=== PATIENT | female | born 1980 | race Caucasian/White ===

== ENCOUNTER 2018-08-16 10:39 | Observation (INO) | payer OTHER ==
--- NOTE | 2018-08-15 11:09 | PDGENHP ---
History and Physical History and Physical: Assessment and Plan: 1. Endometriosis Maribell's symptoms are highly concerning for persistent endometriosis. We reviewed all conservative and surgical options. Unfortunately she has failed medical management. As a result, she is requesting laparoscopy with robotic excision of endometriosis. I will call in some Valium to use vaginally both when she has worsening pain symptoms as well as before physical therapy. She has operative photos at home and will email me copies. 2. Dysmenorrhea 3. Dyspareunia, female Subjective: Patient ID: Maribell Page is a 38 y.o. female who presents to [facility] for endometriosis. HPI Maribell Page presents for a preoperative visit. She is scheduled for a robotic excision of endometriosis. She is not planning on having any children. She is given me permission to remove her uterus and/or ovaries as indicated. The risks, benefits, and alternatives were presented and informed consent was obtained. 40 minutes of this 40 minute appointment was spent counceling, reviewing the procedure in detail, and discussing the preoperative and postoperative instructions. Below is a copy of our prior visit note. Lissy is a 38-year-old 0 woman who lives in [place]. 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 She recently moved from [facility]. In her early 30s she began developing irregular menses which then became prolonged. She also developed dysmenorrhea. She was tried on multiple control pills without any success. She also was tried on Lupron empirically for 3 months which did not help as well as letrozole. Eventually in February 2016 she underwent a diagnostic laparoscopy and was found to have endometriosis. He only performed a biopsy. Her pain persisted despite medical management. She then was referred to a Dr. Campos in [place] who performed laparoscopy with excision of endometriosis in the anterior and posterior cul-de-sac as well as bilateral ovarian sidewalls. She also removed a right endometrioma and placed a Mirena IUD. Unfortunately her pain slightly worsened for the first 6 months. Today she feels as though she has not received any benefit. She has a low level fairly constant left lower quadrant pain which worsens cyclically every 2 weeks. The pain radiates down her left leg. She has gone to pelvic floor physical therapy which did not help in fact made things worse. She currently is on Neurontin 900 mg at night and baclofen 10 mg twice per day. She has both dyspareunia and dyschezia which feels more like a generalized pain and persists afterwards. Her Mirena is still in place. 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 Asthma 1990 managed but brought on by severe colds Depression Dietary counseling and surveillance 12/23/2014 "for weight management" Endometriosis HPV in female Migraines Neuromuscular disorder (HC code) 2016 endometriosis causing nerve & muscle issues Polyp of nasal cavity 03/23/2018-2017 surgery completed Urinary tract infection Urticaria 03/23/2018 PastSurgicalHistory Past Surgical History: Procedure Laterality Date CHOLECYSTECTOMY INTRAUTERINE DEVICE INSERTION LAPAROSCOPY 2015, 2017 LEEP LIVER SURGERY 2014 liver hemangioma PREVIOUS SURGERIES 2004, 2014, 2015, 2016, 2017 sinus '05&'18, hemangioma - liver, lapro for endo '16&'17 CURRENT MEDICATIONS: Current Outpatient Medications Medication Sig albuterol HFA (PROAIR HFA) 90 mcg/actuation inhaler Inhale 2 puffs into the lungs every 6 hours as needed for Acute Asthma Attack. baclofen (LIORESAL) 10 mg tablet Take 1 tablet by mouth 2 times daily. buPROPion (WELLBUTRIN XL) 300 mg 24 hr tablet cetirizine (ZYRTEC) 10 mg tablet desvenlafaxine 100 mg TR24 EPINEPHrine (AUVI-Q) 0.3 mg/0.3 mL injection Inject 0.3 mLs into the muscle. gabapentin (NEURONTIN) 300 mg capsule Take 1 capsule by mouth 3 times daily. GENERIC DME for dryness. Falguni Geranium/Sesame Oil 3 sprays to each nostril twice daily. ipratropium (ATROVENT) 0.03 % nasal spray 2 sprays by Nasal route 2 times daily for Chronic Inflammation of the Nose Not due to Allergies, Non-Seasonal Allergic Runny Nose. levalbuterol (XOPENEX HFA) 45 mcg/actuation inhaler Inhale 1-2 puffs into the lungs every 4 hours as needed for Wheezing for Asthma Attack. levonorgestrel (MIRENA) 20 mcg/24 hr (5 years) IUD 52 mg by Intrauterine route continuous device. pseudoephedrine (SUDAFED) 30 mg tablet Take 2 tablets by mouth every 6 hours. tiZANidine (ZANAFLEX) 4 mg tablet traZODone (DESYREL) 50 mg tablet Take 1 tablet by mouth every 24 hours. valACYclovir (VALTREX) 1 g tablet No current facility-administered medications for this visit. ALLERGIES: Adhesive and Levaquin [levofloxacin] I have reviewed, verified and agree with the past medical, surgical, , family, social and ROS history as documented by the RN today. Objective: Vital Signs: Visit Vitals BP 108/72 Pulse 95 Temp 36.3 C (97.4 F) (Temporal) Resp 16 Ht 1.575 m (5' 2") Wt 71.6 kg (157 lb 12.8 oz) SpO2 99% BMI 28.86 kg/m Physical Exam Gen: This is an alert, well developed woman in no distress. Neuro: She moves all extremities. Psych: She is appropriate, oriented, with normal affect. Neck: No thyroid enlargement, adenopathy, or tenderness. Lungs: Clear to ascultation, no wheezes or rales. Heart: Regular rate and rhythm without obvious murmurs. Abdomen: Soft, non-tender, without guarding, rebound, or masses. Extremities: No edema or cyanosis. Pelvic: Normal external genitalia. Non-gaping introitus, vagina without discharge, adequately estrogenized, no significant prolapse. Cervix without lesions or discharge. Uterus normal size. Adnexa non-tender without enlargement. She is quite tender surrounding the cervix both anteriorly and even more so posteriorly. She has thickening and possible nodularity between the uterosacral ligaments on the posterior cervix. The posterior cul-de-sac is quite tender. This re-creates her pain. DATA: I have reviewed the pertinent medical records. PELVIC ULTRASOUND Transvaginal Pelvic Ultrasound Indication: Pelvic pain, history of endometriosis. Findings: The uterus is mid position and measures 5.7 x 3.8 x 4.3 cm. A Mirena IUD is seen at the fundus with the arms in a horizontal position. No uterine abnormalities are seen. The right ovary measures 2.7 x 1.5 cm and contains 2 dominant follicles. No endometriomas are seen. The left ovary measures 2.7 x 1.5 cm. There is no evidence of adhesive disease of either adnexa nor the uterus. Impression: Normal pelvic ultrasound. Appropriately positioned IUD. TIME/COMMUNICATION: I personally spent a total of 45 minutes. Of that 30 minutes was counseling/ coordination of patient's care. See my note above for details. Heriberto Duron MD Board Certified Female Pelvic Medicine and Reconstructive Surgery Director of Minimally Invasive Gynecologic Surgery, [facility] Surgeon in Minimally Invasive Gynecologic Surgery [facility] Surgeon in Robotic Surgery
[2018-08-16] MEDS ORDERED: ACETAMINOPHEN 500 MG TAB PO ONE (10:57)
[2018-08-16] MEDS ORDERED: ceFAZolin 2 GM/DEXTROSE 100 ML IV ONE (10:57)
[2018-08-16] MEDS ORDERED: GABAPENTIN 300 MG CAP PO ONE (10:57)
[2018-08-16] MEDS ORDERED: PHENAZOPYRIDINE HCL 200 MG TAB PO ONE ×2 (10:57→13:21)
[2018-08-16] MEDS ORDERED: LIDOCAINE 1% 2 ML INJ ID PRN (10:58)
[2018-08-16] MEDS ORDERED: LR 1,000 ML IV ONE (10:58)
--- NOTE | 2018-08-16 11:00 | PDHPUP ---
History & Physical Update H&P update statement: This history and physical update is based on an assessment of the patient which was completed after admission or registration (within 24 hours), but prior to the surgery/procedure. H&P update: no change in patient's condition since H&P completed
[2018-08-16] MEDS ORDERED: BUPIVACAINE/EPI 0.5% 30 ML SDV ONE ×2 (11:21→13:10)
[2018-08-16] MEDS ORDERED: SCOPOLAMINE HYDROBROMIDE 1 MG/3 DAYS PATCH TD ONE ×2 (11:22→11:26)
[2018-08-16] MEDS ORDERED: MIDAZOLAM 2 MG/2 ML VIAL IVP ONE (11:22)
--- NOTE | 2018-08-16 11:23 | PDANEPAE ---
ANE Past Medical History - Cardiovascular History Hx Hypertension: No Hx Arrhythmias: No Hx Chest Pain: No Hx Coronary Artery / Peripheral Vascular Disease: No Hx CHF / Valvular Disease: No Hx Palpitations: No - Pulmonary History Hx COPD: No Hx Asthma/Reactive Airway Disease: Yes Hx Recent Upper Respiratory Infection: No Hx Oxygen in Use at Home: No Hx Sleep Apnea: No Sleep Apnea Screening Result - Last Documented: Negative Pulmonary History Comment: ASTHMA - ALLERGY INDUCED AND CONTROLLED - Neurologic History Hx Cerebrovascular Accident: No Hx Seizures: No Hx Dementia: No Neurologic History Comment: MIGRAINES1-2 PER MONTH - Endocrine History Hx Diabetes: No - Renal History Hx Renal Disorders: No - Liver History Hx Hepatic Disorders: No Hepatic History Comment: HEMANGIOMA - Neurological & Psychiatric Hx Hx Neurological and Psychiatric Disorders: No - Cancer History Hx Cancer: No - Congenital Disorder History Hx Congenital Disorders: No - GI History Hx Gastrointestinal Disorders: No Gastrointestinal History Comment: IBS/CONSTIPATION - Other Health History Other Health History: NEG - Chronic Pain History Chronic Pain: Yes (ENDOMETRIOSIS - ABD, LOW BACK & LEGS) - Surgical History Prior Surgeries: LAPAROSCOPIES X2 ENDOMETRIOSIS. CHOLECYSTECTOMY. LIVER REMOVE HEMANGIOMA. ENDOSCOPIC SINUS SURG X2 ANE Review of Systems Review of Systems: - Exercise capacity METS (RN): 4 METS ANE Patient History - Allergies Allergies/Adverse Reactions: adhesive tape Allergy (Verified 08/16/18 11:19) BLISTERS levofloxacin [From Levaquin] Allergy (Verified 08/16/18 11:19) VERY STIFF MUSCLES & SPASMS - Home Medications Home medications: home medication list seen and reviewed Home Medications: Baclofen 07/20/18 [Last Taken Unknown] Bupropion HCl 07/20/18 [Last Taken Unknown] Desvenlafaxine 07/20/18 [Last Taken Unknown] Gabapentin 07/20/18 [Last Taken Unknown] Ibuprofen 07/20/18 [Last Taken Unknown] Delano-3 07/20/18 [Last Taken Unknown] Proair Hfa 07/20/18 [Last Taken Unknown] Trazodone HCl 07/20/18 [Last Taken Unknown] Xhance 07/20/18 [Last Taken Unknown] - NPO status NPO Status: no food or drink >8 hours NPO Since - Liquids (Date): 08/15/18 NPO Since - Liquids (Time): 22:00 NPO Since - Solids (Date): 01/22/19 NPO Since - Solids (Time): 22:00 - Anes Hx Anes Hx: post operative nausea and vomiting - Smoking Hx Smoking Status: Never smoked - Family Anes Hx Family Anes Hx: none Family Hx Anesthesia Complications: UNK ANE Labs/Vital Signs - Vital Signs Vital Signs: reviewed preoperatively; see RN documention for details Blood Pressure: 109/76 Heart Rate: 97 Respiratory Rate: 16 O2 Sat (%): 92 Height: 157.48 cm Weight: 70.307 kg ANE Physical Exam - Airway Neck exam: FROM Mallampati Score: Class 1 Mouth exam: normal dental/mouth exam - Pulmonary Pulmonary: clear to auscultation - Cardiovascular Cardiovascular: regular rate and rhythym - ASA Status ASA Status: II ANE Anesthesia Plan Anesthesia Plan: general endotracheal anesthesia Total IV Anesthesia: Yes
[2018-08-16] MEDS ORDERED: PROPOFOL 200 MG/20 ML VIAL ONE (11:26)
[2018-08-16] MEDS ORDERED: HYDROmorphONE/DILAUDID 2 MG/ML INJ ONE (11:26)
[2018-08-16] MEDS ORDERED: PROPOFOL/EMULSION 500 MG/50 ML BOTTLE IV ONE ×3 (11:26→12:41)
[2018-08-16] MEDS ORDERED: MIDAZOLAM 2 MG/2 ML VIAL ONE (11:27)
[2018-08-16] MEDS ORDERED: ROCURONIUM 50 MG/5 ML VIAL ONE (11:34)
[2018-08-16] MEDS ORDERED: LIDOCAINE 2% 5 ML SDV ONE (11:34)
[2018-08-16] MEDS ORDERED: METOCLOPRAMIDE 10 MG/2 ML VIAL ONE (11:52)
[2018-08-16] MEDS ORDERED: DEXAMETHASONE 4 MG/ML VIAL ONE (11:58)
[2018-08-16] MEDS ORDERED: ONDANSETRON 4 MG/2 ML VIAL ONE (11:58)
[2018-08-16] MEDS ORDERED: METOPROLOL TARTRATE 5 MG/5 ML INJ ONE (12:24)
[2018-08-16] MEDS ORDERED: oxyCODONE IR 5 MG TAB PO PRN (12:49)
[2018-08-16] MEDS ORDERED: ALBUTEROL 3 ML DEYVIAL IH PRN (12:49)
[2018-08-16] MEDS ORDERED: HYDROCODONE/APAP 5/325 TAB PO PRN ×2 (12:49→13:21)
[2018-08-16] MEDS ORDERED: HYDROmorphONE/DILAUDID 2 MG/ML INJ IVP PRN (12:49)
[2018-08-16] MEDS ORDERED: NALOXONE HCL 0.4 MG/ML INJ IVP PRN (12:49)
[2018-08-16] MEDS ORDERED: fentaNYL 100 MCG/2 ML INJ IVP PRN (12:49)
[2018-08-16] MEDS ORDERED: ONDANSETRON 4 MG/2 ML VIAL IVP PRN ×2 (12:49→13:21)
[2018-08-16] MEDS ORDERED: DIAZEPAM 5 MG/ML 1 ML SYR IVP PRN (12:49)
[2018-08-16] MEDS ORDERED: PROMETHAZINE HCL 25 MG/ML INJ IVP PRN (12:49)
[2018-08-16] MEDS ORDERED: DEXAMETHASONE 4 MG/ML VIAL IVP PRN (12:49)
[2018-08-16] MEDS ORDERED: LR 500 ML IV PRN (12:49)
[2018-08-16] MEDS ORDERED: MEPERIDINE 25 MG/0.5 ML AMP IVP PRN (12:49)
[2018-08-16] MEDS ORDERED: KETOROLAC 30 MG/1 ML SDV ONE (12:51)
[2018-08-16] MEDS ORDERED: SUGAMMADEX SODIUM 200 MG/2 ML VIAL IVP ONE (12:53)
--- NOTE | 2018-08-16 13:20 | POSTOPPROG ---
Post Op Note Date of Operation: 08/16/18 Surgeon: Heriberto Duron Audio Visual Design Engineer: Latoya Rose Anesthesiologist: Colleen Anesthesia: GET(General Endotracheal) Pre-op Diagnosis: Endometriosis, pelvic pain Post-op Diagnosis: Same Procedure: Robotic hysterectomy, RSO, excise endo, bilat ureterolysis Findings: Endo Inf/Abcess present in the surg proc area at time of surgery?: No EBL: Minimal Complications: None
[2018-08-16] MEDS ORDERED: ONDANSETRON DISINTEGRATING 4 MG TAB PO PRN (13:21)
[2018-08-16] MEDS ORDERED: LR 1,000 ML IV SCH (13:30)
--- NOTE | 2018-08-16 13:50 | POSTANESTH ---
Post Anesthetic Evaluation Cardiovascular Status: Normal, Stable Respiratory Status: Normal, Stable Level of Consciousness/Mental Status: Can Participate in Eval Pain Control: Adequate, Prn Tx Ordered Nausea/Vomiting Control: Adequate, Prn Tx Ordered Complications Possibly Related to Anesthesia: None Noted
--- NOTE | 2018-08-16 14:27 | GOP ---
DATE OF OPERATION: 08/16/2018 SURGEON: Heriberto Duron MD TACKER ELASTIC BAND: Latoya Rose CFA. ANESTHESIA: General. PREOPERATIVE DIAGNOSIS: 1. Dysmenorrhea. 2. Endometriosis. 3. Uterine prolapse. 4. Midcycle pelvic pain. POSTOPERATIVE DIAGNOSIS: 1. Dysmenorrhea. 2. Endometriosis. 3. Uterine prolapse. 4. Midcycle pelvic pain. PROCEDURE PERFORMED: 1. Robotic-assisted total laparoscopic hysterectomy, bilateral salpingectomy, right oophorectomy. 2. Excision of endometriosis in the anterior and posterior cul-de-sac, bilateral pelvic sidewalls. 3. Bilateral ureterolysis. 4. Uterosacral ligament colpopexy. 5. Left ovarian pexy. FINDINGS: SPECIMENS: Uterus, bilateral tubes, right ovary, and endometriosis. ESTIMATED BLOOD LOSS: Scant. DESCRIPTION OF PROCEDURE: The patient was taken to the operating room, where she was identified. Ge neral anesthesia was administered and found to be adequate. She was placed in the lithotomy position and prepped draped in normal sterile fashion. A Jones catheter was placed in her bladder. A Algaeonare uterine manipulator was placed into the endometrial cavity and sutured to the cervix. A 1 cm infraumbilical incision was made with a scalpel. The Veress needle with CO2 flowing was advan berta into the peritoneal cavity. The abdomen was then insufflated with carbon dioxide gas. The 12 mm trocar followed by the laparoscope were then inserted. The upper abdomen was unremarkable. There w as no evidence of endometriosis on either diaphragm, liver, stomach, or upper abdominal bowel. Two l ateral ports were placed in the right and in 1 left under direct visualization. She was then placed in Trendelenburg position and the da Sudha robot docked on the left side. The instruments were then brought into the abdominal cavity under direct visualization. The patient was found have endometriosis in the posterior cul-de-sac along with cervix, both ovarian fossa as well as in the anterior cul-de-sac. There was endometriosis on the right ovary. As a resul t, s decision was made to perform a hysterectomy, removing both tubes and the right ovary. The left fallopian tube was along the mesosalpinx. The utero-ovarian ligament, followed by the round ligament was then cauterized and transected. The anterior lip of the broad ligament was t hen incised over the left uterine vessels and across the cervix. The bladder was dissected off the c ervix and upper vagina. The left uterine vasculature was then cauterized and transected. The right round ligament was divided. The anterior lip of the broad ligament was incised toward the bifurcatio n of the right common iliac vessels. A window was created in the posterior leaf anterior to the uret er to skeletonize the infundibulopelvic vessels. They were then cauterized and transected. The righ t uterine vasculature was then cauterized and transected. The anterior cul-de-sac peritoneum was com pletely excised, followed by the posterior cul-de-sac peritoneum from the distal rectum up to the cer vix and laterally to the uterosacral ligaments. A bilateral ureterolysis was required to remove the endometriosis overlying both ureters. The peritoneum at the pelvic brims was incised. The ureters w ere gently dissected free and lateralized off the overlying peritoneum and endometriosis from the pel evan brim down to the bladder. Once was accomplished, the entire ovarian fossa peritoneum was complet khadijah excised. A circumferential colpotomy incision was then made with the hot irasema and all specimen s were removed through the vagina. The vaginal cuff was closed with a running suture of 0 V-Loc 180. A bilateral uterosacral ligament colpopexy was performed by attaching the lateral aspects of the va ginal cuff to the ipsilateral uterosacral ligaments near the coccygeal-sacrospinous ligament complexe s. The pelvis was then irrigated with sterile saline and hemostasis was present. The left ovary was then attached to the left round ligament near the internal inguinal ring with 3-0 Vicryl Rapide sutu re. The robot was then undocked. The fascia was closed with 0 Vicryl, skin with 4-0 Monocryl. Anes thesia was reversed and the patient taken to the PACU awake and in stable condition. COMPLICATIONS: None. DISPOSITION: Patient stable to PACU. /[id number]/MODL
[2018-08-16] MEDS: HYDROmorphONE/DILAUDID 1 MG/ML INJ IVP PRN ×2 (15:52→20:31)
[2018-08-16] MEDS: GABAPENTIN 300 MG CAP PO SCH ×2 (16:04→21:57)
[2018-08-16] MEDS: KETOROLAC 30 MG/1 ML SDV IVP SCH (19:15)
[2018-08-16] MEDS: DOCUSATE SODIUM 100 MG CAP PO SCH (19:43)
[2018-08-16] MEDS: SIMETHICONE 80 MG TAB CHEW PO SCH ×2 (19:43→21:57)
[2018-08-17] MEDS: OXYCODONE/APAP 5/325 TAB PO PRN ×4 (00:58→13:27)
[2018-08-17] MEDS: KETOROLAC 30 MG/1 ML SDV IVP SCH ×3 (00:58→13:25)
[2018-08-17 06:57] LABS: PLATELET COUNT 185 10^3/uL (150-400)
[2018-08-17] MEDS: GABAPENTIN 300 MG CAP PO SCH (09:08)
[2018-08-17] MEDS: DOCUSATE SODIUM 100 MG CAP PO SCH (09:09)
[2018-08-17] MEDS: SIMETHICONE 80 MG TAB CHEW PO SCH ×2 (09:09→13:26)
[2018-08-17 09:36] VITALS: BP 96/62
--- NOTE | 2018-08-17 10:20 | GDS ---
DISCHARGE DIAGNOSES: 1. Endometriosis. 2. Dysmenorrhea. 3. Pelvic pain. PROCEDURES: 1. Robotic-assisted total laparoscopic hysterectomy, bilateral salpingectomy, right oophorectomy. 2. Excision of endometriosis in the anterior and posterior cul-de-sac, bilateral pelvic sidewall. 3. Bilateral ureterolysis. 4. Uterosacral ligament colpopexy. 5. Left ovarian pexy. 6. Cystoscopy. HISTORY: The patient is a 38-year-old female with a long history of pelvic pain and endometriosis. She was taken to the operating room on 08/16/2018, where she underwent the above-mentioned procedures without complications. Her postoperative course was uneventful. The morning after surgery she was ambulating, voiding, and tolerating a general diet. Her pain was controlled well with Percocet and Toradol. She was afebrile , her vital signs were stable. Her abdomen was flat and soft. Her incisions were clean, dry, and in tact. She was moving well. She was discharged home on postoperative day #1 in good condition. Medications included ibuprofen and Percocet for pain. She had a followup appointment 2 weeks after himanshu romero. /[id number]/MODL
[2018-08-17] MEDS ORDERED: PATCH REMOVAL 1 EA PATCH TD ONE (12:00)
== END 2018-08-17 13:30 | disposition home or self-care (01) ==
LOC: FSGY 10:39 → F3E 13:21 → FOB 16:29
PROVIDERS: ADMIT Obstetrics & Gynecology; ATTEND Obstetrics & Gynecology
PROC: 0UT0FZZ Resection of Right Ovary, Via Natural or Artificial Opening With Percutaneous Endoscopic Assistance (ICD-10-PCS; principal; 2018-08-16 12:00)
PROC: 0UT7FZZ Resection of Bilateral Fallopian Tubes, Via Natural or Artificial Opening With Percutaneous Endoscopic Assistance (ICD-10-PCS; principal; 2018-08-16 12:00)
PROC: 0UBF8ZX Excision of Cul-de-sac, Via Natural or Artificial Opening Endoscopic, Diagnostic (ICD-10-PCS; principal; 2018-08-16 12:00)
PROC: 0UT9FZZ Resection of Uterus, Via Natural or Artificial Opening With Percutaneous Endoscopic Assistance (ICD-10-PCS; principal; 2018-08-16 12:00)
PROC: 8E0W4CZ Robotic Assisted Procedure of Trunk Region, Percutaneous Endoscopic Approach (ICD-10-PCS; principal; 2018-08-16 12:00)
PROC: 0USG4ZZ Reposition Vagina, Percutaneous Endoscopic Approach (ICD-10-PCS; principal; 2018-08-16 12:00)
PROC: 0DBW4ZX Excision of Peritoneum, Percutaneous Endoscopic Approach, Diagnostic (ICD-10-PCS; principal; 2018-08-16 12:00)
DX: N80.3 Endometriosis of pelvic peritoneum (principal); N80.1 Endometriosis of ovary; N81.4 Uterovaginal prolapse, unspecified; N94.6 Dysmenorrhea, unspecified; R10.2 Pelvic and perineal pain; K59.00 Constipation, unspecified; F41.9 Anxiety disorder, unspecified; M46.94 Unspecified inflammatory spondylopathy, thoracic region; J45.909 Unspecified asthma, uncomplicated
CPT/HCPCS: 57425; 58571; 58662; G0378; J0690; J1100; J1170; J1885; J2250; J2405; J2704; J2765